=== PATIENT | female | born 1945 | race Caucasian/White ===

== ENCOUNTER 2017-08-22 05:25 | Inpatient (IN) | payer OTHER ==
[2017-08-22 05:45] VITALS: BMI 30.2
--- NOTE | 2017-08-22 06:17 | PDOC ---
Attending Attestation - HPI HPI: 08/22/17 06:26 The patient is a 72 year old female, with a significant past medical history of , DM, hypertension, ESRD on dialysis T/, who presents to the emergency department with, shortness of breath beginning approx. 2 pm yesterday. The patient reports the shortness of breath is made worse with exertion. The patient reports associated sensation of chest tightness but denies chest pain or palpitations. She denies recent fevers, chills, headache or dizziness. She denies recent nausea, vomit, diarrhea or constipation. Allergies: NKA Documentation prepared by Daniel Salazar, acting as medical records secretary for Michi Oliver DO. <Daniel Salazar - Last Filed: 08/22/17 06:26> - Resident Resident Name: Lan Saldana - ED Attending Attestation I have performed the following: I have examined & evaluated the patient, The case was reviewed & discussed with the resident, I agree w/resident's findings & plan, Exceptions are as noted - Physicial Exam PE: 08/22/17 20:02 physical exam physical exam*Physical Exam General Appearance: Yes: Appropriately Dressed. No: Apparent Distress, Intoxicated HEENT: positive: EOMI, MAHAD, Normal ENT Inspection, Normal Voice, TMs Normal, Pharynx Normal. negative: Pale Conjunctivae, Photophobia, Scleral Icterus (R), Scleral Icterus (L) Neck: positive: Trachea midline, Normal Thyroid, Supple. negative: Tender, Rigid, Carotid bruit, Stridor, Lymphadenopathy (R), Lymphadenopathy (L), Thyromegaly Respiratory/Chest: positive: decreased BS bilaterally, mild respiratory distress , +conversational dyspnea negative: Chest Tender Cardiovascular: positive: Regular Rhythm, Regular Rate, S1, S2. negative: Edema , JVD, Murmur, Bradycardia, Tachycardia Vascular Pulses: Dorsalis-Pedis (R): 2+, Doralis-Pedis (L): 2+ Gastrointestinal/Abdominal: positive: Normal Bowel Sounds, Flat, Soft. negative : Tender, Organomegaly, Pulsatile Mass, Increased Bowel Sounds, Decreased BS, Distended, Guarding, Rebound, Hernia, Hepatomegaly, Spleenomegaly Lymphatic: negative: Adenopathy, Tenderness Musculoskeletal: positive: AV fistula right arm, + bruit and thrill negative: CVA Tenderness, Decreased Range of Motion Extremity: positive: Normal Capillary Refill, Normal Inspection, Normal Range of Motion, Pelvis Stable. negative: Tender, Pedal Edema, Swelling, Erythema Integumentary: positive: Normal Color, Dry, Warm. negative: Cyanotic, Erythema , Jaundice, Rash Neurologic: positive: housekeeper cleaning cooking II-XII NML intact, Fully Oriented, Alert, Normal Mood/ Affect, Motor Strength 5/5. negative: EOM Palsy, Facial Droop, Sensory Deficit - Medical Decision Making 08/22/17 20:01 Pt admitted for further treatment and evaluation. <Michi Oliver - Last Filed: 08/22/17 20:04>
[2017-08-22] MEDS ORDERED: ALBUTEROL SO4 2.5/IPRATROPIUM 0.5 INH SOL 3 ML VIAL.NEB. NEB ONE ×2 (06:18→06:49)
[2017-08-22] MEDS ORDERED: NITROGLYCERIN 2% OINTMENT - 1GM PACKET TD ONE ×2 (06:18→06:48)
--- NOTE | 2017-08-22 06:24 | PDOC ---
History of Present Illness - General Chief Complaint: Shortness of Breath Stated Complaint: DIFFICULTY BREATHING Time Seen by Provider: 08/22/17 05:49 History Source: Patient Exam Limitations: Language Barrier - History of Present Illness Initial Comments: 08/22/17 06:19 Patient is a 72F with history of ESRD on TThSa dialysis, HTN, DM here today complaining of shortness of breath since 2pm yesterday. Patient states that she feels suffocated and has dyspnea on exertion. She denies chest pain, but describes a chest tightness. She denies nausea, vomiting, fevers, chills. She endorses a cough and decreased activity level. She denies leg swelling and edema. Denies smoking and alcohol use. EMS reports BP of 220 systolic in the field. Given nitro. BP now in 160s. Past History - Past Medical History Allergies/Adverse Reactions: Allergies Allergy/AdvReac Type Severity Reaction Status Date / Time No Known Allergies Allergy Verified 08/22/17 05:43 Home Medications: Ambulatory Orders Amlodipine Besylate [Norvasc -] 5 mg PO DAILY 08/22/17 Aspirin [ASA -] 81 mg PO DAILY 08/22/17 Carvedilol [Coreg -] 6.25 mg PO DAILY 08/22/17 COPD: No Dialysis: Yes (es, , sat) - Suicide/Smoking/Psychosocial Hx Smoking History: Never smoked Have you smoked in the past 12 months: No Information on smoking cessation initiated: No Hx Alcohol Use: No Drug/Substance Use Hx: No Review of Systems - Review of Systems Comments:: 08/22/17 06:21 GENERAL/CONSTITUTIONAL: No fever or chills. HEAD, EYES, EARS, NOSE AND THROAT: No change in vision. No sore throat. CARDIOVASCULAR: Positive for chest discomfort and shortness of breath. RESPIRATORY: Positive for cough. Negative for wheezing, or hemoptysis. GASTROINTESTINAL: No nausea, vomiting, diarrhea or constipation. GENITOURINARY: No dysuria, frequency, or change in urination. SKIN: No rash NEUROLOGIC: No headache, vertigo, loss of consciousness, or change in strength/ sensation. ALLERGIC/IMMUNOLOGIC: No hives or skin allergy. *Physical Exam - Vital Signs Last Vital Signs Temp Pulse Resp BP Pulse Ox 80 16 169/71 94 L 08/22/17 05:44 08/22/17 05:44 08/22/17 05:44 08/22/17 05:44 - Physical Exam Comments: 08/22/17 06:22 GENERAL: Awake, alert, and fully oriented, in no acute distress. HEAD: No signs of trauma, normocephalic, atraumatic EYES: PERRLA, EOMI, sclera anicteric, conjunctiva clear ENT: Auricles normal inspection, hearing grossly normal, nares patent, oropharynx clear without exudates. Moist mucosa NECK: Normal ROM, supple, no lymphadenopathy, JVD, or masses LUNGS: No distress, diminished breath sounds, dyspneic on walking in room, dyspneic with conversation. Not tachypneic while resting. HEART: Regular rate and rhythm, normal S1 and S2, 3/6 diastolic blowing murmur. ABDOMEN: Soft, nontender, normoactive bowel sounds. No guarding, no rebound. No masses EXTREMITIES: Normal inspection, Normal range of motion, no edema. No clubbing or cyanosis. NEUROLOGICAL: Cranial nerves II through XII grossly intact. Normal speech, no focal sensorimotor deficits SKIN: Warm, Dry, normal turgor, no rashes or lesions noted. ED Treatment Course - LABORATORY CBC & Chemistry Diagram: 08/22/17 06:15 08/22/17 06:15 - RADIOLOGY Radiology Studies Ordered: Category Date Time Status CHEST PA & LAT [RAD] Stat Radiology 08/22/17 06:17 Ordered Medical Decision Making - Medical Decision Making 08/22/17 06:24 72F with ESRD, DM, HTN here today with shortness of breath. Vital signs stable and normal after intervention in field. Differential diagnosis includes, but is not limited to: fluid overload, COPD exacerbation, pneumonia, CHF, arrhythmia, heart failure secondary to valve dysfunction. Will evaluate with ua, CBC, CMP, trop, ekg, cxr, bnp. Will treat with nitro paste and duoneb. EKG shows normal sinus rhythm with a rate of 76. Normal QRS and [place] intervals. QTc slightly prolonged to 479. No peaked t wave abnormalities. No signs of acute hyperkalemia. Flattened t-waves in multiple leads. No ST elevations/ depressions. No t wave inversions. 08/22/17 07:[address] Kaminski. *DC/Admit/Observation/Transfer Diagnosis at time of Disposition: Shortness of breath - Referrals - Patient Instructions - Post Discharge Activity
[2017-08-22 07:00] LABS: BASO % 0.6 % (0-2.0); EOS % 2.2 % (0-4.5); HEMATOCRIT 33.4 % (32.4-45.2); HEMOGLOBIN 10.5 GM/dL (10.7-15.3); LYMPH % 14.7 % (8-40); MCH 27.7 pg (25.7-33.7); MCHC 31.4 g/dl (32.0-36.0); MEAN CELL VOLUME 88.4 fl (80-96); MEAN PLT VOLUME 9.3 fl (7.5-11.1); MONO % 3.5 % (3.8-10.2); PLATELET COUNT 306 K/MM3 (134-434); RBC 3.77 M/mm3 (3.60-5.2); RDW 18.3 % (11.6-15.6)
[2017-08-22 07:04] LABS: URINE APPEARANCE CLEAR; URINE BILIRUBIN NEGATIVE (NEGATIVE); URINE BLOOD NEGATIVE (NEGATIVE); URINE COLOR STRAW; URINE GLUCOSE (UA) 2+ (NEGATIVE); URINE KETONE NEGATIVE (NEGATIVE); URINE LEUK ESTERASE TRACE (NEGATIVE); URINE NITRITE NEGATIVE (NEGATIVE); URINE UROBILINOGEN NEGATIVE mg/dL (0.2-1.0)
[2017-08-22 07:13] LABS: INR 0.98 (0.82-1.09); PROTHROMBIN TIME (PATIENT) 11.1 SEC (9.98-11.88)
[2017-08-22 07:18] LABS: URINE PROTEIN 3+ (NEGATIVE)
[2017-08-22 07:51] LABS: ALBUMIN 3.3 g/dl (3.4-5.0); ANION GAP 10 (8-16); BILIRUBIN,TOTAL 0.2 mg/dL (0.2-1.0); BLOOD UREA NITROGEN 62 mg/dL (7-18); CALCIUM 8.4 mg/dL (8.5-10.1); CHLORIDE 100 mmol/L (98-107); CO2 25 mmol/L (21-32); GLUCOSE,RANDOM 116 mg/dL (74-106); MAGNESIUM 2.8 mg/dL (1.8-2.4); POTASSIUM 5.7 mmol/L (3.5-5.1); SGOT/AST 10 U/L (15-37); SGPT/ALT 15 U/L (12-78); SODIUM 135 mmol/L (136-145); TOT PROT 6.5 g/dl (6.4-8.2)
[2017-08-22 07:57] LABS: ALK PHOS 123 U/L (45-117)
[2017-08-22 08:04] LABS: EPI CELLS FEW /HPF (FEW); URINE MUCUS RARE
[2017-08-22 08:26] LABS: CREATININE 8.1 mg/dL (0.55-1.02)
--- NOTE | 2017-08-22 09:15 | PDOC ---
*Physical Exam - Vital Signs Last Vital Signs Temp Pulse Resp BP Pulse Ox 98.2 F 74 18 149/72 97 08/22/17 08:41 08/22/17 08:41 08/22/17 08:41 08/22/17 08:41 08/22/17 08:41 ED Treatment Course - LABORATORY CBC & Chemistry Diagram: 08/22/17 06:15 08/22/17 06:15 - ADDITIONAL ORDERS Additional order review: Laboratory Results 08/22/17 08/22/17 08/22/17 06:15 06:15 06:15 PT with INR INR Sodium 135 L Potassium 5.7 H Chloride 100 Carbon Dioxide 25 Anion Gap 10 BUN 62 H Creatinine 8.1 H* Creat Clearance w eGFR 4.86 Random Glucose 116 H Calcium 8.4 L Magnesium 2.8 H Total Bilirubin 0.2 AST 10 L ALT 15 Alkaline Phosphatase 123 H Creatine Kinase 31 Troponin I < 0.02 B-Natriuretic Peptide 90667.64 H Total Protein 6.5 Albumin 3.3 L Urine Color Straw Urine Appearance Clear Urine pH 9.0 H Ur Specific [place] 1.011 Urine Protein 3+ H Urine Glucose (UA) 2+ H Urine Ketones Negative Urine Blood Negative Urine Nitrite Negative Urine Bilirubin Negative Urine Urobilinogen Negative Ur Leukocyte Esterase Trace Urine WBC (Auto) 8 Urine RBC (Auto) None Ur Epithelial Cells Few Urine Mucus Rare 08/22/17 06:15 PT with INR 11.10 INR 0.98 Sodium Potassium Chloride Carbon Dioxide Anion Gap BUN Creatinine Creat Clearance w eGFR Random Glucose Calcium Magnesium Total Bilirubin AST ALT Alkaline Phosphatase Creatine Kinase Troponin I B-Natriuretic Peptide Total Protein Albumin Urine Color Urine Appearance Urine pH Ur Specific [place] Urine Protein Urine Glucose (UA) Urine Ketones Urine Blood Urine Nitrite Urine Bilirubin Urine Urobilinogen Ur Leukocyte Esterase Urine WBC (Auto) Urine RBC (Auto) Ur Epithelial Cells Urine Mucus 08/22/17 06:15 RBC 3.77 MCV 88.4 MCHC 31.4 L RDW 18.3 H MPV 9.3 Neutrophils % 79.0 Lymphocytes % 14.7 Monocytes % 3.5 L Eosinophils % 2.2 Basophils % 0.6 - Medications Given in the ED: ED Medications Discontinued Medications Generic Name Dose Route Start Last Admin Trade Name Freq PRN Reason Stop Dose Admin Albuterol/Ipratropium 1 amp 08/22/17 06:18 08/22/17 06:53 Duoneb - NEB 08/22/17 06:19 1 amp ONCE ONE Administration Nitroglycerin 0.5 inch 08/22/17 06:18 08/22/17 06:53 Nitro-Bid 2% Paste - TD 08/22/17 06:19 0.5 inch ONCE ONE Administration *DC/Admit/Observation/Transfer Diagnosis at time of Disposition: Shortness of breath, Dialysis patient - Discharge Dispostion Admit: Yes - Referrals - Patient Instructions - Post Discharge Activity
--- NOTE | 2017-08-22 09:52 | HP ---
CHIEF COMPLAINT: "Couldn't breathe" PCP: Dr. Bettie Nicholas ([phone]) Plant Propagator: Dr. Clark HISTORY OF PRESENT ILLNESS: Patient is a 72 year old female with a PMHx of ESRD on HD (,,Sat), HTN, HLD, CAD s/p CABG (2004), Small bowel resection 2/2 jejunal bleeding, ventral hernia who presented today for increasing shortness of breath associated with chest tightness that started two days ago. Patient states having trouble breathing with or without physical activity and is unable to walk more than a few steps before getting short of breath, as well as difficulty sleeping. Patient also report substernal chest tightness that initially started two days ago as intermittent but is now constant, which prompted her to call the ambulance last night. Patient denies chest pain and reports it's only chest tightness. Patient also reports a productive cough with clear phlegm that has been chronic for the past year. Otherwise, patient denies fever, chills, rhinorrhea, muscle aches, nausea, vomiting, dizziness, diarrhea, chest pain, palpitations, leg swelling, dysuria, hematuria, hemoptysis acute vision changes. Patient denies any missed dialysis sessions Patient denies sick contacts. Patient does admit to having her flu shot this year. Patient denies any recent prolonged travel or recent immobilization. Patent denies any Malignancy, recent surgery, thrombophilia, hormone therapy ER course was notable for: (1) Duo-Neb treatment x1 (2) Nitroglycerin paste given (3) Recent Travel: Denies PAST MEDICAL HISTORY: ESRD on HD (,,Sat), HTN, HLD, CAD s/p CABG (2004), Small bowel resection 2/2 jejunal bleeding, ventral hernia PAST SURGICAL HISTORY: CABG (2004), Small bowel resection (2 years ago). Social History: Smoking: Denies Alcohol: Denies Drugs: Denies Family History: Unable to recall Allergies: No Known Allergies Allergy (Verified 08/22/17 05:43) HOME MEDICATIONS: Home Medications Medication Instructions Recorded Amlodipine Besylate [Norvasc -] 5 mg PO DAILY 08/22/17 Aspirin [ASA -] 81 mg PO DAILY 08/22/17 Carvedilol [Coreg -] 6.25 mg PO DAILY 08/22/17 Isoniazid 300 mg PO DAILY 08/22/17 REVIEW OF SYSTEMS CONSTITUTIONAL: Absent: fever, chills, diaphoresis, generalized weakness, malaise, loss of appetite, weight change HEENT: Absent: rhinorrhea, nasal congestion, throat pain, throat swelling, difficulty swallowing, mouth swelling, ear pain, eye pain, visual changes CARDIOVASCULAR: Absent: chest pain, syncope, palpitations, irregular heart rate, lightheadedness , peripheral edema RESPIRATORY: cough, shortness of breath, dyspnea with exertion Absent: orthopnea, wheezing, stridor, hemoptysis GASTROINTESTINAL: abdominal pain Absent: abdominal distension, nausea, vomiting, diarrhea, constipation, melena, hematochezia GENITOURINARY: Oliguria from ESRD Absent: dysuria, frequency, urgency, hesitancy, hematuria, flank pain, genital pain MUSCULOSKELETAL: Absent: myalgia, arthralgia, joint swelling, back pain, neck pain SKIN: Absent: rash, itching, pallor HEMATOLOGIC/IMMUNOLOGIC: Absent: easy bleeding, easy bruising, lymphadenopathy, frequent infections ENDOCRINE: Absent: unexplained weight gain, unexplained weight loss, heat intolerance, cold intolerance NEUROLOGIC: Absent: headache, focal weakness or paresthesias, dizziness, unsteady gait, seizure, mental status changes, bladder or bowel incontinence PSYCHIATRIC: Absent: anxiety, depression, suicidal or homicidal ideation, hallucinations. PHYSICAL EXAMINATION Vital Signs - 24 hr 08/22/17 08/22/17 05:44 08:41 Temperature 98.2 F Pulse Rate 80 Pulse Rate [ 74 Apical] Respiratory 16 18 Rate Blood Pressure 169/71 Blood Pressure 149/72 [Left Arm] O2 Sat by Pulse 94 L 97 Oximetry (%) GENERAL: Awake, alert, and fully oriented, in no acute distress. HEAD: Normal with no signs of trauma. EYES: Pupils equal, round and reactive to light, extraocular movements intact, sclera anicteric, conjunctiva clear. No lid lag. EARS, NOSE, THROAT: Oropharynx clear without exudates. Moist mucous membranes. NECK: Normal range of motion, supple without lymphadenopathy, JVD, or masses. LUNGS: Fine crackles appreciated in the right lung bases with no accessory muscle use. HEART: Vertical sternum scar. Regular rate and rhythm, normal S1 and S2 without murmur, rub or gallop. ABDOMEN: Soft, mild tenderness upon palpation of left lower quadrant with reducible ventral hernia, not distended, normoactive bowel sounds, no guarding, no rebound, no masses. No hepatomegaly or splenomegaly. MUSCULOSKELETAL: No CVA tenderness. UPPER EXTREMITIES: No peripheral edema. LOWER EXTREMITIES: 2+ pulses, warm, well-perfused. No calf tenderness. No peripheral edema. NEUROLOGICAL: Cranial nerves II-XII intact. Normal speech. Motor strength 5/5 bilaterally with sensory intact. 2+ reflex PSYCHIATRIC: Cooperative. Good eye contact. Appropriate mood and affect. SKIN: Warm, dry, normal turgor, no rashes or lesions noted, normal capillary refill. Laboratory Results - last 24 hr 08/22/17 08/22/17 08/22/17 06:15 06:15 06:15 WBC 7.0 RBC 3.77 Hgb 10.5 L Hct 33.4 MCV 88.4 MCH 27.7 MCHC 31.4 L RDW 18.3 H Plt Count 306 MPV 9.3 Neutrophils % 79.0 Lymphocytes % 14.7 Monocytes % 3.5 L Eosinophils % 2.2 Basophils % 0.6 PT with INR 11.10 INR 0.98 Sodium Potassium Chloride Carbon Dioxide Anion Gap BUN Creatinine Creat Clearance w eGFR Random Glucose Calcium Magnesium Total Bilirubin AST ALT Alkaline Phosphatase Creatine Kinase Troponin I B-Natriuretic Peptide Total Protein Albumin Urine Color Straw Urine Appearance Clear Urine pH 9.0 H Ur Specific [place] 1.011 Urine Protein 3+ H Urine Glucose (UA) 2+ H Urine Ketones Negative Urine Blood Negative Urine Nitrite Negative Urine Bilirubin Negative Urine Urobilinogen Negative Ur Leukocyte Esterase Trace Urine WBC (Auto) 8 Urine RBC (Auto) None Ur Epithelial Cells Few Urine Mucus Rare 08/22/17 08/22/17 06:15 06:15 WBC RBC Hgb Hct MCV MCH MCHC RDW Plt Count MPV Neutrophils % Lymphocytes % Monocytes % Eosinophils % Basophils % PT with INR INR Sodium 135 L Potassium 5.7 H Chloride 100 Carbon Dioxide 25 Anion Gap 10 BUN 62 H Creatinine 8.1 H* Creat Clearance w eGFR 4.86 Random Glucose 116 H Calcium 8.4 L Magnesium 2.8 H Total Bilirubin 0.2 AST 10 L ALT 15 Alkaline Phosphatase 123 H Creatine Kinase 31 Troponin I < 0.02 B-Natriuretic Peptide 42926.64 H Total Protein 6.5 Albumin 3.3 L Urine Color Urine Appearance Urine pH Ur Specific [place] Urine Protein Urine Glucose (UA) Urine Ketones Urine Blood Urine Nitrite Urine Bilirubin Urine Urobilinogen Ur Leukocyte Esterase Urine WBC (Auto) Urine RBC (Auto) Ur Epithelial Cells Urine Mucus IMAGES Chest X-Ray (08/22/17): No pneumonia, infiltrates, consolidation, CHF, Pleural effusion or pneumothorax ASSESSMENT/PLAN: Patient is a 72 year old female who presented for shortness of breath. Patient also scheduled for Hemodialysis today and is admitted for further monitoring and management. Dyspnea with Chest Tightness -Patient has history of CAD and will need to rule out cardiology etiology. Patient also has risk of PE, although low suspicion, and will need to rule out any pulmonology etiology vs. infectious etiology due to associated productive cough. However, patient is a dialysis patient and is likely in fluid overload and will need to remove fluids with dialysis. -PERC 2, HEART 5 -Patient afebrile, no leukocytosis or tachycardia -Troponin negative with EKG revealing no ST-T changes. Chest X-Ray negative for acute pathology -Flu swab ordered -Spoke to PCP who reports last ECHO revealed EF of 55% with normal stress test done July 2016. Will repeat ECHO -Maintain 02 saturation >95% with 02 -Will need to obtain dry weight ESRD on HD (T,TH,Sat) -Nephrology consult placed and spoke to trauma manager who will send patient to dialysis today with planned 3kg UF -Epogen ordered by trauma manager -Renally dose medications for hemodialysis -Strict Renal diet with salt restriction -Continue to monitor BMP HyperKalemia -Secondary to ESRD -For dialysis this afternoon -Continue to monitor BMP Hypermagnesemia -Secondary to ESRD -For dialysis today. Will continue to monitor Elevated BNP -Likely secondary to ESRD and old age. However, cannot rule out CHF. -BNP of 84,382 -Continuous Cardiac monitoring on Telemetry -ECHO ordered to rule out CHF Normocytic Anemia -Secondary to ESRD -Continue EPOGEN, as per nehrology -Patient takes Venofer injections weekly and Epogen 16,000 x3/week -Transfuse if hgb <7 -Continue to monitor CBC HTN -Patient found to have SBP 220 in the field with nitro given -Continue home medication Amlodipine 10mg daily and Coreg 6.25mg BID -Continue to monitor BP and Maintain BP <140/90 CAD s/p CABG -Continue ASA 81mg daily HLD -Records from PCP revealed last LDL January. Will order Lipid panel -Continue Atorvastatin 40mg HS F/E/N -On no Fluids -Hyperkalemia. Hyermagnesemia. For dialysis today -Renal Diet Prophylaxis -Moderate risk. Heparin 5000 units SQ Q8H for DVT -No GI required Disposition -Full code -ECHO pending. For dialysis today. Will need a minimum one night Visit type - Emergency Visit Emergency Visit: Yes ED Registration Date: 08/22/17 Care time: The patient presented to the Emergency Department on the above date and was hospitalized for further evaluation of their emergent condition. - New Patient This patient is new to me today: Yes Date on this admission: 08/22/17 - Critical Care Critical Care patient: No
--- NOTE | 2017-08-22 09:59 | CON.NEP ---
Consult Consult Specialty:: Nephrology Referred by:: ED Reason for Consultation:: ESRD on HD, Hyperkalemia - History of Present Illness Chief Complaint: SOB History of Present Illness: This is a 72 year old woman with PMhx of ESRD on HD (TTS x 4 years), Hypertension, CAD s/p CABG (13 years ago), DM, CVA presents with complaints of SOB that was acutely worse last night. Pt last had dialysis on Saturday w/o issues. + PADGETT but no orthopnea. No LE swelling. Denies dietary indiscretion. No fever, chills. No recent travel or immoblity. + Frequent BMs. No N/V. No [place], confusion or lethargy. Primary Web Content Director is Dr. Clark - History Source History Provided By: Patient, Family Member Limitations to Obtaining History: No Limitations - Past Medical History PRESS ROOM SUPERVISOR: Yes: CVA Cardio/Vascular: Yes: CAD, HTN Renal/: Yes: Renal Failure, Hemodialysis Endocrine: Yes: Diabetes Mellitus - Alcohol/Substance Use Hx Alcohol Use: No - Smoking History Smoking history: Never smoked Have you smoked in the past 12 months: No Home Medications - Allergies Allergies/Adverse Reactions: Allergies Allergy/AdvReac Type Severity Reaction Status Date / Time No Known Allergies Allergy Verified 08/22/17 05:43 - Home Medications Home Medications: Ambulatory Orders Amlodipine Besylate [Norvasc -] 5 mg PO DAILY 08/22/17 Aspirin [ASA -] 81 mg PO DAILY 08/22/17 Carvedilol [Coreg -] 6.25 mg PO DAILY 08/22/17 Isoniazid 300 mg PO DAILY 08/22/17 Family Disease History - Family Disease History Family History: Unremarkable Review of Systems - Review of Systems Constitutional: reports: Lethargy Eyes: reports: No Symptoms HENT: reports: No Symptoms Neck: reports: No Symptoms Cardiovascular: reports: Shortness of Breath. denies: Chest Pain, Palpitations Respiratory: reports: SOB, SOB on Exertion. denies: Cough, Hemoptysis, Orthopnea, PND, Wheezing Gastrointestinal: denies: Abdominal Pain, Constipation, Diarrhea, Nausea, Vomiting Genitourinary: reports: No Symptoms Musculoskeletal: reports: No Symptoms Neurological: reports: No Symptoms Nephrology Consult - Height Height: 4 ft 11 in - Weight Weight: 68.039 kg - BMI Body Mass Index (BMI): 30.2 - Lab Results CBC,BMP: CBC, BMP 08/22/17 06:15 08/22/17 06:15 Anion Gap: Anion Gap Anion Gap 10 (8-16) 08/22/17 06:15 - Imaging Chest X-ray: Report Reviewed - Physical Examination Vital Signs: Vital Signs Temperature 98.2 F 08/22/17 08:41 Pulse Rate 74 08/22/17 08:41 Respiratory Rate 18 08/22/17 08:41 Blood Pressure 149/72 08/22/17 08:41 O2 Sat by Pulse Oximetry (%) 97 08/22/17 08:41 Constitutional: Yes: No Distress, Calm Eyes: Yes: Conjunctiva Clear HENT: Yes: Atraumatic, Normocephalic Neck: Yes: Supple, Trachea Midline Cardiovascular: Yes: Regular Rate and Rhythm, S1, S2. No: Murmur, Rub Respiratory: Yes: Regular, Rhonchi, SOB. No: Cough, Diminished, On Nasal O2, Orthopnea Gastrointestinal: Yes: Normal Bowel Sounds, Soft Renal/: No: Bladder Distention, CVA Tenderness - Left, CVA Tenderness - Right Access for Hemodialysis: AV Fistula Extremities: No: Cold, Cool, Cyanosis Edema: No Assessment/Plan 72 year old woman with PMhx of ESRD on HD (TTS x 4 years), Hypertension, CAD s/ p CABG (13 years ago), DM, CVA presents with complaints of SOB that was acutely worse last night. #Acute SOB in ESRD with ? Mild volume overload CXR w/o overt congestion but pt does have crackles/rales on examination will plan for dialysis today with aggressive UF pt also have very elevated BNP if symptoms dont improve after fluid removal would consider examination of LE to r/o DVT although less likely #Hyperkalemia for dialysis today low K diet #ESRD on HD for dialysis today with planned 3kg UF Renal diet Fluid and salt restriction dose all meds for intermittent HD #Hypertension continue amlodipine and Coreg goal BP < 140/90 CHAS/ARB not being used, ? of hx of hyperkalemia in the past #CKD related Anemia will give KENDRA with HD no indication for transfusion #CAD with Hx of CABG consider cardiology consult consider ECHO #DM Type 2 management per primary Thank you Will follow Sagar Cordova DO
[2017-08-22] MEDS ORDERED: INSULIN SLIDING SCALE (NOVOLOG) 1 VIAL SQ SCH (11:00)
[2017-08-22] MEDS ORDERED: CARVEDILOL 6.25 MG TABLET (FP) PO ONE (11:00)
[2017-08-22 11:01] LABS: CHOLESTEROL 256 mg/dL (50-200); LDL CHOLESTEROL (ONLY SJRH) 152 mg/dL (5-100); TRIGLYCERIDES 245 mg/dL (35-160)
[2017-08-22 11:02] LABS: HDL CHOLESTEROL 52 mg/dL (40-60)
--- NOTE | 2017-08-22 11:47 | PN ---
Teaching Attending Note Name of Resident: Gretta Aguirre ATTENDING PHYSICIAN STATEMENT I saw and evaluated the patient. I reviewed the resident's note and discussed the case with the resident. I agree with the resident's findings and plan as documented. SUBJECTIVE: This is a 72 year old woman with a history of ESRD on HD, HTN, CAD, CABG, hyperlipidemia, CVA who presents to the ED complaining of SOB, chest tightness, cough and fatigue. Her last HD was 08/20. She denies fever, chills, leg edema. She was given nitroglycerin by EMS for SBP 220. OBJECTIVE: Vital Signs Period Temp Pulse Resp BP Sys/Guajardo Pulse Ox Last 24 Hr 98.2 F 74-80 16-18 149-169/71-72 94-97 HEART: S1S2, RRR, (+) 2/6 SM LUNGS: Bibasilar rales ABDOMEN: Soft, non-tender, non-distended, normal BS EXTREMITIES: No edema Laboratory Tests 08/22/17 08/22/17 08/22/17 06:15 06:15 06:15 WBC 7.0 RBC 3.77 Hgb 10.5 L Hct 33.4 MCV 88.4 MCH 27.7 MCHC 31.4 L RDW 18.3 H Plt Count 306 MPV 9.3 Neutrophils % 79.0 Lymphocytes % 14.7 Monocytes % 3.5 L Eosinophils % 2.2 Basophils % 0.6 PT with INR 11.10 INR 0.98 Sodium Potassium Chloride Carbon Dioxide Anion Gap BUN Creatinine Creat Clearance w eGFR Random Glucose Calcium Magnesium Total Bilirubin AST ALT Alkaline Phosphatase Creatine Kinase Troponin I B-Natriuretic Peptide Total Protein Albumin Triglycerides Cholesterol Total LDL Cholesterol HDL Cholesterol Urine Color Straw Urine Appearance Clear Urine pH 9.0 H Ur Specific [place] 1.011 Urine Protein 3+ H Urine Glucose (UA) 2+ H Urine Ketones Negative Urine Blood Negative Urine Nitrite Negative Urine Bilirubin Negative Urine Urobilinogen Negative Ur Leukocyte Esterase Trace Urine WBC (Auto) 8 Urine RBC (Auto) None Ur Epithelial Cells Few Urine Mucus Rare 08/22/17 08/22/17 06:15 06:15 WBC RBC Hgb Hct MCV MCH MCHC RDW Plt Count MPV Neutrophils % Lymphocytes % Monocytes % Eosinophils % Basophils % PT with INR INR Sodium 135 L Potassium 5.7 H Chloride 100 Carbon Dioxide 25 Anion Gap 10 BUN 62 H Creatinine 8.1 H* Creat Clearance w eGFR 4.86 Random Glucose 116 H Calcium 8.4 L Magnesium 2.8 H Total Bilirubin 0.2 AST 10 L ALT 15 Alkaline Phosphatase 123 H Creatine Kinase 31 Troponin I < 0.02 B-Natriuretic Peptide 29812.64 H Total Protein 6.5 Albumin 3.3 L Triglycerides 245 H Cholesterol 256 H Total LDL Cholesterol 152 H HDL Cholesterol 52 Urine Color Urine Appearance Urine pH Ur Specific [place] Urine Protein Urine Glucose (UA) Urine Ketones Urine Blood Urine Nitrite Urine Bilirubin Urine Urobilinogen Ur Leukocyte Esterase Urine WBC (Auto) Urine RBC (Auto) Ur Epithelial Cells Urine Mucus Home Medications Medication Instructions Recorded Amlodipine Besylate [Norvasc -] 5 mg PO DAILY 08/22/17 Aspirin [ASA -] 81 mg PO DAILY 08/22/17 Atorvastatin Ca [Lipitor] 40 mg PO HS 08/22/17 Carvedilol [Coreg -] 6.25 mg PO DAILY 08/22/17 Isoniazid 300 mg PO DAILY 08/22/17 ASSESSMENT AND PLAN: This is a 72 year old woman with a history of ESRD on HD, HTN, CAD, CABG, hyperlipidemia, CVA who presented to the ED with SOB, chest tightness, cough and fatigue. She was found to have BUN 62, creatinine 8.1, potassium 5.7, BNP 77292. 1. Dyspnea and chest tightness, likely secondary to fluid overload - Nephrology consult for HD - Monitor on telemetry - Serial troponins - Echocardiogram 2. Hyperkalemia secondary to ESRD - Needs HD 3. ESRD - Nephrology consult for HD 4. HTN - Continue Coreg, Norvasc 5. CAD, history of CABG - Continue aspirin, Norvasc, Lipitor 6. Hyperlipidemia - Continue Lipitor 7. Anemia secondary to ESRD
[2017-08-22] MEDS: amLODIPine BESYLATE 5 MG TABLET (FP) PO SCH (11:57)
[2017-08-22] MEDS: ASPIRIN 81 MG CHEWABLE TABLETS PO SCH (11:57)
--- NOTE | 2017-08-22 12:42 | EKG ---
Test Reason : Blood Pressure : / mmHG Vent. Rate : 075 BPM Atrial Rate : 075 BPM P-R Int : 196 ms QRS Dur : 092 ms QT Int : 428 ms P-R-T Axes : 026 020 064 degrees QTc Int : 477 ms NORMAL SINUS RHYTHM NONSPECIFIC ST AND T WAVE ABNORMALITY ABNORMAL ECG NO PREVIOUS ECGS AVAILABLE Confirmed by GABBY KAT, RAZA ([id number]) on 08/22/2017 12:42:35 PM Referred By: Confirmed By:RAZA PIERRE MD
[2017-08-22] MEDS: HEPARIN NA (PORCINE) 5,000 UNITS/ML 1ML VIAL SQ SCH ×2 (14:52→22:53)
[2017-08-22] MEDS ORDERED: EPOETIN ALFA 2,000 UNIT/1 ML VIAL IVPUSH ONE (15:45)
[2017-08-22] MEDS ORDERED: ACETAMINOPHEN 325 MG TABLET (FP) PO PRN (22:17)
[2017-08-22] MEDS ORDERED: MELATONIN 5 MG TABLETS PO PRN (22:18)
[2017-08-23] MEDS: HEPARIN NA (PORCINE) 5,000 UNITS/ML 1ML VIAL SQ SCH ×2 (06:16→14:44)
[2017-08-23 06:45] LABS: HEMATOCRIT 33.7 % (32.4-45.2); HEMOGLOBIN 10.5 GM/dL (10.7-15.3); MCH 27.4 pg (25.7-33.7); MEAN CELL VOLUME 88.4 fl (80-96); MEAN PLT VOLUME 9.4 fl (7.5-11.1); PLATELET COUNT 278 K/MM3 (134-434); RBC 3.81 M/mm3 (3.60-5.2); RDW 18.6 % (11.6-15.6)
--- NOTE | 2017-08-23 06:46 | PN ---
Physical Exam: SUBJECTIVE: Patient seen and examined OBJECTIVE: Vital Signs Period Temp Pulse Resp BP Sys/Guajardo Pulse Ox Last 24 Hr 97.9 F-98.9 F 74-88 18-18 132-173/64-92 95-98 GENERAL: The patient is awake, alert, and fully oriented, in no acute distress. HEAD: Normal with no signs of trauma. EYES: PERRL, extraocular movements intact, sclera anicteric, conjunctiva clear. No ptosis. ENT: Ears normal, nares patent, oropharynx clear without exudates, moist mucous membranes. NECK: Trachea midline, full range of motion, supple. LUNGS: Breath sounds equal, clear to auscultation bilaterally, no wheezes, no crackles, no accessory muscle use. HEART: Regular rate and rhythm, S1, S2 without murmur, rub or gallop. ABDOMEN: Soft, nontender, nondistended, normoactive bowel sounds, no guarding, no rebound, no hepatosplenomegaly, no masses. EXTREMITIES: 2+ pulses, warm, well-perfused, no edema. NEUROLOGICAL: Cranial nerves II through XII grossly intact. Normal speech, gait not observed. PSYCH: Normal mood, normal affect. SKIN: Warm, dry, normal turgor, no rashes or lesions noted Laboratory Results - last 24 hr 08/22/17 08/22/17 08/22/17 06:15 06:15 06:15 WBC 7.0 RBC 3.77 Hgb 10.5 L Hct 33.4 MCV 88.4 MCH 27.7 MCHC 31.4 L RDW 18.3 H Plt Count 306 MPV 9.3 Neutrophils % 79.0 Lymphocytes % 14.7 Monocytes % 3.5 L Eosinophils % 2.2 Basophils % 0.6 PT with INR 11.10 INR 0.98 Sodium Potassium Chloride Carbon Dioxide Anion Gap BUN Creatinine Creat Clearance w eGFR Random Glucose Hemoglobin A1c % Calcium Magnesium Total Bilirubin AST ALT Alkaline Phosphatase Creatine Kinase Troponin I B-Natriuretic Peptide Total Protein Albumin Triglycerides Cholesterol Total LDL Cholesterol HDL Cholesterol Urine Color Straw Urine Appearance Clear Urine pH 9.0 H Ur Specific [place] 1.011 Urine Protein 3+ H Urine Glucose (UA) 2+ H Urine Ketones Negative Urine Blood Negative Urine Nitrite Negative Urine Bilirubin Negative Urine Urobilinogen Negative Ur Leukocyte Esterase Trace Urine WBC (Auto) 8 Urine RBC (Auto) None Ur Epithelial Cells Few Urine Mucus Rare 08/22/17 08/22/17 08/22/17 06:15 06:15 12:21 WBC RBC Hgb Hct MCV MCH MCHC RDW Plt Count MPV Neutrophils % Lymphocytes % Monocytes % Eosinophils % Basophils % PT with INR INR Sodium 135 L Potassium 5.7 H Chloride 100 Carbon Dioxide 25 Anion Gap 10 BUN 62 H Creatinine 8.1 H* Creat Clearance w eGFR 4.86 Random Glucose 116 H Hemoglobin A1c % 5.5 Calcium 8.4 L Magnesium 2.8 H Total Bilirubin 0.2 AST 10 L ALT 15 Alkaline Phosphatase 123 H Creatine Kinase 31 Troponin I < 0.02 B-Natriuretic Peptide 64457.64 H Total Protein 6.5 Albumin 3.3 L Triglycerides 245 H Cholesterol 256 H Total LDL Cholesterol 152 H HDL Cholesterol 52 Urine Color Urine Appearance Urine pH Ur Specific [place] Urine Protein Urine Glucose (UA) Urine Ketones Urine Blood Urine Nitrite Urine Bilirubin Urine Urobilinogen Ur Leukocyte Esterase Urine WBC (Auto) Urine RBC (Auto) Ur Epithelial Cells Urine Mucus 08/22/17 12:21 WBC RBC Hgb Hct MCV MCH MCHC RDW Plt Count MPV Neutrophils % Lymphocytes % Monocytes % Eosinophils % Basophils % PT with INR INR Sodium Potassium Chloride Carbon Dioxide Anion Gap BUN Creatinine Creat Clearance w eGFR Random Glucose Hemoglobin A1c % Calcium Magnesium Total Bilirubin AST ALT Alkaline Phosphatase Creatine Kinase Troponin I < 0.02 B-Natriuretic Peptide Total Protein Albumin Triglycerides Cholesterol Total LDL Cholesterol HDL Cholesterol Urine Color Urine Appearance Urine pH Ur Specific [place] Urine Protein Urine Glucose (UA) Urine Ketones Urine Blood Urine Nitrite Urine Bilirubin Urine Urobilinogen Ur Leukocyte Esterase Urine WBC (Auto) Urine RBC (Auto) Ur Epithelial Cells Urine Mucus Active Medications Acetaminophen (Tylenol -) 650 mg PO Q6H PRN PRN Reason: PAIN Last Admin: 08/22/17 22:54 Dose: 650 mg Amlodipine Besylate (Norvasc -) 5 mg PO DAILY [facility] Last Admin: 08/22/17 11:57 Dose: 5 mg Aspirin (Asa -) 81 mg PO DAILY [facility] Last Admin: 08/22/17 11:57 Dose: 81 mg Carvedilol (Coreg -) 6.25 mg PO DAILY [facility] Heparin Sodium (Porcine) (Heparin -) 5,000 unit SQ TID [facility] Last Admin: 08/23/17 06:16 Dose: 5,000 unit Melatonin (Melatonin) 5 mg PO HS PRN PRN Reason: INSOMNIA Last Admin: 08/22/17 22:53 Dose: 5 mg ASSESSMENT/PLAN:
[2017-08-23 07:01] LABS: ANION GAP 12 (8-16); BLOOD UREA NITROGEN 36 mg/dL (7-18); CALCIUM 8.9 mg/dL (8.5-10.1); CHLORIDE 99 mmol/L (98-107); CO2 31 mmol/L (21-32); CREATININE 5.4 mg/dL (0.55-1.02); GLUCOSE,RANDOM 113 mg/dL (74-106); MAGNESIUM 2.5 mg/dL (1.8-2.4); PHOSPHOROUS 6.1 mg/dL (2.5-4.9); POTASSIUM 4.7 mmol/L (3.5-5.1); SODIUM 142 mmol/L (136-145)
[2017-08-23] MEDS ORDERED: CARVEDILOL 6.25 MG TABLET (FP) PO SCH (10:00)
[2017-08-23] MEDS: amLODIPine BESYLATE 5 MG TABLET (FP) PO SCH (10:05)
[2017-08-23] MEDS: ASPIRIN 81 MG CHEWABLE TABLETS PO SCH (10:05)
--- NOTE | 2017-08-23 12:26 | PN ---
Progress Note (short form) - Note Progress Note: Renal Follow up for ESRD on HD Pt seen and examined at the bedside awake and alert s/p dialysis yesterday with 3kg UF spoke with pt with office professional and she reports that her sob is resolved and back at baseline Vital Signs Temperature 98.9 F 08/23/17 06:00 Pulse Rate 77 08/23/17 11:42 Respiratory Rate 18 08/23/17 11:42 Blood Pressure 144/73 08/23/17 11:42 O2 Sat by Pulse Oximetry (%) 98 08/23/17 09:00 Intake & Output 08/20/17 08/21/17 08/22/17 08/23/17 23:59 23:59 23:59 23:59 Intake Total 610 120 Balance 610 120 Weight 68.039 kg 72.847 kg NAD RRR CTA, no rales soft NT/ND Abd no LE edema CBC, BMP 08/23/17 06:15 08/23/17 06:15 Current Medications Acetaminophen (Tylenol -) 650 mg PO Q6H PRN PRN Reason: PAIN Last Admin: 08/22/17 22:54 Dose: 650 mg Amlodipine Besylate (Norvasc -) 5 mg PO DAILY [facility] Last Admin: 08/23/17 10:05 Dose: 5 mg Aspirin (Asa -) 81 mg PO DAILY [facility] Last Admin: 08/23/17 10:05 Dose: 81 mg Carvedilol (Coreg -) 6.25 mg PO DAILY [facility] Heparin Sodium (Porcine) (Heparin -) 5,000 unit SQ TID [facility] Last Admin: 08/23/17 06:16 Dose: 5,000 unit Melatonin (Melatonin) 5 mg PO HS PRN PRN Reason: INSOMNIA Last Admin: 08/22/17 22:53 Dose: 5 mg 72 year old woman with PMhx of ESRD on HD (TTS x 4 years), Hypertension, CAD s/ p CABG (13 years ago), DM, CVA presents with complaints of SOB that was acutely worse last night. #Acute SOB in ESRD with ? Mild volume overload pt clinically improved s/p UF with dialysis continue fluid and salt restriction for additional dialysis and UF tomorrow #ESRD on HD s/p dialysis yesterday, tolerated it well next treatment planned for tomorrow #Hypertension BP near goal continue present meds #CKD related Anemia continue KENDRA with Hd #CAD with Hx of CABG ECHO showed normal LV Function, increased RV pressure Sagar Cordova DO
--- NOTE | 2017-08-23 12:33 | CONSULT ---
- Consultation REQUESTING PROVIDER: Alem Lopez MD CONSULT REQUEST: We have been asked to surgically evaluate this patient for management of an abdominal wall hernia. PCP:Adam Mcdowell HISTORY OF PRESENT ILLNESS: BAO who is a 72 y/o female admitted oer 24 hours ago w/difficulty breathing for which a w/u is in progress; patient was found to have an abdominal wall hernia and consultation was requested; patient has known about the hernia for some time after surgery for a ? small bowel resection 2-3 years ago not done here; it does ? not interfere w/her ADL; she provides no other hx. She is eating and moving her bowels. PMHx: ESRD;hypertension;hyperlipidemia; ? TB PSHx: ex lap and small bowel resection Home Medications Medication Instructions Recorded Amlodipine Besylate [Norvasc -] 5 mg PO DAILY 08/22/17 Aspirin [ASA -] 81 mg PO DAILY 08/22/17 Atorvastatin Ca [Lipitor] 40 mg PO HS 08/22/17 Carvedilol [Coreg -] 6.25 mg PO DAILY 08/22/17 Isoniazid 300 mg PO DAILY 08/22/17 Allergies Allergy/AdvReac Type Severity Reaction Status Date / Time No Known Allergies Allergy Verified 08/22/17 05:43 PHYSICAL EXAM: GENERAL: Awake, alert, and fully oriented, in no acute distress. HEAD: Normal with no signs of trauma. EYES: sclera anicteric, conjunctiva clear. NECK: Normal ROM, supple without lymphadenopathy, JVD, or masses. ABDOMEN: Soft, nontender, not distended, normoactive bowel sounds, no guarding, no rebound, no masses. No organomegaly. Reducible lower midline incisional hernia; healed lower midline surgical scar; no groin hernias. MUSCULOSKELETAL: Normal ROM at all joints. No bony deformities or tenderness. No CVA tenderness. HD access RUE UPPER EXTREMITIES: 2+ pulses, warm, well-perfused. No cyanosis. Cap refill <2 seconds. No peripheral edema. LOWER EXTREMITIES: 2+ pulses, warm, well-perfused. No calf tenderness. No peripheral edema. NEUROLOGICAL: Normal speech, gait not observed. PSYCH: Cooperative. Good eye contact. Appropriate mood and affect. SKIN: Warm, dry, normal turgor, no rashes or lesions noted. Vital Signs Temperature 98.9 F 08/23/17 06:00 Pulse Rate 77 08/23/17 11:42 Respiratory Rate 18 08/23/17 11:42 Blood Pressure 144/73 08/23/17 11:42 O2 Sat by Pulse Oximetry (%) 98 08/23/17 09:00 Lab Results WBC 11.0 K/mm3 (4.0-10.0) H D 08/23/17 06:15 RBC 3.81 M/mm3 (3.60-5.2) 08/23/17 06:15 Hgb 10.5 GM/dL (10.7-15.3) L 08/23/17 06:15 Hct 33.7 % (32.4-45.2) 08/23/17 06:15 MCV 88.4 fl (80-96) 08/23/17 06:15 MCHC 31.0 g/dl (32.0-36.0) L 08/23/17 06:15 RDW 18.6 % (11.6-15.6) H 08/23/17 06:15 Plt Count 278 K/MM3 (134-434) 08/23/17 06:15 Sodium 142 mmol/L (136-145) 08/23/17 06:15 Potassium 4.7 mmol/L (3.5-5.1) 08/23/17 06:15 Chloride 99 mmol/L (98-107) 08/23/17 06:15 Carbon Dioxide 31 mmol/L (21-32) D 08/23/17 06:15 Anion Gap 12 (8-16) 08/23/17 06:15 BUN 36 mg/dL (7-18) H D 08/23/17 06:15 Creatinine 5.4 mg/dL (0.55-1.02) H 08/23/17 06:15 Random Glucose 113 mg/dL (74-106) H 08/23/17 06:15 Calcium 8.9 mg/dL (8.5-10.1) 08/23/17 06:15 INR 0.98 (0.82-1.09) 08/22/17 06:15 IMP: incisional hernia w/o evidence of incarceration and/or strangulation PLAN: Advise repair once acute issues that brought the patient to the ER are resolved; d/w patient in [place] the s's and s's of incarceration and/or strangulation and what to do should that occur if she has to f/u as an outpatient or if surgery is not done. Leeroy Nelson MD FACS Visit type - Case Type Case Type: ED Admission - Emergency Emergency Visit: Yes ED Registration Date: 08/22/17 Care time: The patient presented to the Emergency Department on the above date and was hospitalized for further evaluation of their emergent condition. - New patient This patient is new to me today: Yes Date on this admission: 08/23/17 - Critical Care Critical Care patient: No
--- NOTE | 2017-08-23 13:26 | PN ---
Teaching Attending Note Name of Resident: Stefany Juarez ATTENDING PHYSICIAN STATEMENT I saw and evaluated the patient. I reviewed the resident's note and discussed the case with the resident. I agree with the resident's findings and plan as documented. SUBJECTIVE: No fever ro chills , has no SOB , no CP . her sx resolved after Hd . she has pain x 2-3 months at site of abd wall hernia OBJECTIVE: NAd Cv: RRR, 2/6 Sm at LUSB. Lung s: CTAB ext : no edema Abd: soft, mid line infrumbilical hernia which is reversible but slightly tender with no skin changes . NL BS . ASSESSMENT AND PLAN: 72 y/o lady with h/o ESRD on HD (T,TH,Sat), HTN, HLD, CAD s/p CABG, Small bowel resection 2/2 jejunal bleeding, ventral hernia and other medical problems who presented with SOB 1- SOB due to volume overload. resolved completely after HD . nO CP or any EKG changes to suggest ACS . Echo reviewed. EKG reviewed. trop NL. - cont HD per routine schedule 2- HLP : LDL 152 . she denies being on lipitor . will start 40 f lpitor for goal LDL < 70 3- h/o CAD, HTn: cont home meds 4- Abd wall hernia : appreciate dr. Nelson help. No incarceration or strangulation. f/u in office. d/w him dipo : home . witnessed walking by strategy intern and doing well
--- NOTE | 2017-08-23 18:00 | DS ---
Physical Exam: SUBJECTIVE: Patient seen and examined. Reports breathing improved after HD yesterday. Slept well overnight. No SOB or chest pain. OBJECTIVE: Vital Signs Period Temp Pulse Resp BP Sys/Guajardo Pulse Ox Last 24 Hr 98.2 F-98.9 F 76-88 17-18 119-173/64-83 95-98 PHYSICAL EXAM GENERAL: lying comfortaby in bed, nad, aaox3 EYES: sclera anicteric, conjunctiva clear. ENT: oropharynx clear without exudates, moist mucous membranes. NECK: supple, no cervical LAD LUNGS: CTAB HEART: rrr, normal s1/s2, 2/6 EDWIN at LUSB ABDOMEN: obese, soft, mildline infraumbilical reducible hernia, midlly tender ttp, normoactive BS UPPER EXTREMITIES: R AVF 2+ radial pulses, wwp, no edema LOWER EXTREMITIES: 2+ DP pulses, wwp, no edema Laboratory Results - last 24 hr 08/23/17 08/23/17 06:15 06:15 WBC 11.0 H D RBC 3.81 Hgb 10.5 L Hct 33.7 MCV 88.4 MCH 27.4 MCHC 31.0 L RDW 18.6 H Plt Count 278 MPV 9.4 Sodium 142 Potassium 4.7 Chloride 99 Carbon Dioxide 31 D Anion Gap 12 BUN 36 H D Creatinine 5.4 H Random Glucose 113 H Calcium 8.9 Phosphorus 6.1 H Magnesium 2.5 H IMAGING: CXR 08/22/2017: s/p CT surgery. No e/o widening of superior mediastinum. Calcified aortic arch, uncoiled thoracic aorta. The heart is borderline enlarged. No e/o CHF, pleural effuions, or pneumothorax. No e/o pulmonary consolidations. IMPRESSION: No e/o PNA, CHF, pleural effusion or pneumothorax. HOSPITAL COURSE: Date of Admission:08/22/17 Date of Discharge: 08/23/17 Pre-Admission Course: 72yo woman with PMH of ESRD on HD (TTS x 4yrs), HTN, HLD, CAD s/p CABG (13years ago), DM, and other medical problems who p/w with complaint of increasing SOB that was acutely worse last night. Last dialysis session was Saturday w/o issues. The patient reports intermittent chest tightness that initially started two days ago. Patient reports a productive cough with clear phlegm that has been chronic for the past year. Otherwise, patient denies fever, chills, rhinorrhea, muscle aches, nausea, vomiting, dizziness, diarrhea, chest pain, palpitations, leg swelling, dysuria, hematuria, hemoptysis acute vision changes. Patient denies any missed dialysis sessions Patient denies sick contacts. Patient does admit to having her flu shot this year. Patient denies any recent prolonged travel or recent immobilization. Patent denies any Malignancy, recent surgery, thrombophilia, hormone therapy ER course was notable for: (1) Duo-Neb treatment x1 (2) Nitroglycerin paste given Subsequent Hospital Course: Patient received HD with aggressive ultrafiltration on day of admission with complete resolution of her symptoms. She was observed overnight and denied further chest pain or SOB. EKG was reviewed and there were no changes suggestive of ACS. Troponin was negative. Patient was found to have elevated LDL (152), and was started on Lipitor 40mg HS with the goal of LDL<70 Physical was notable for ventral hernia. She reports mild tenderness at the site for the past 2-3 months. General surgery was consulted, and patient was instructed to follow-up regarding surgical options as an out-patient, which she was in agreement with. Consults: Renal - Dr. Cordova General Surgery - Dr. Nelson Minutes to complete discharge: 45 Discharge Summary Reason For Visit: SOB Current Active Problems Dialysis patient (Chronic) Condition: Improved - Instructions Diet, Activity, Other Instructions: You were admitted to the hospital for shortness of breath. You received dialysis yesterday. Your next dialysis session will be tomorrow, Saturday. Recommendations: -Please resume your regular daily activities. Do not drink more than 1.5L of fluids per day. Avoid foods high in salt and potassium. Medications: Please resume your regular daily medications with the following addition: (1) Take Lipitor 40mg daily for your high cholesterol Follow-ups: -Make an appointment to see your primary care physician within 1-2 weeks for post-hospital evaluation. -Make an appointment to see Dr. Nelson, a surgeon, to discuss management of your hernia. Please return to the Emergency Department if you have worsening shortness of breath, chest pain/tightness/discomfort, severe abdominal pain, fever, chills, or any new or concerning symptoms. [place]: John s[facility]os en [facility] por falta de aire. Prasad recibiste dilisis. Mason pr xima sesin de dilisis ser maana, sbado 08/24/17. Recomendaciones: -por favor reanudar cooper actividades diarias regulares. No chloé ms de 1.5 l de l quidos por da. Evite los alimentos altos en barak y potasio. Medicamentos: Por favor, epesar cooper medicamentos diarios regulares con la siguiente adicin: (1) tome el 40mg de Lipitor diariamente para mason alto colesterol Citas de segimiento: -Nikki elena radha para arron a mason mdico de primario dentro de 1-2 semanas para la evaluacin post-hospitalaria. -Nikki elena radha para arron al doctor Omar, un cirujano, para discutir la reparacion de mason hernia. Por favor regrese al Departamento de emergencias si usted tiene empeoramiento de la respiracin, dolor en el pecho/opresin/malestar, dolor abdominal thiago, fiebre, escalofros, o cualquier sntoma nuevo o concerniente. Referrals: Leeroy Nelson MD [Staff Physician] - Bettie Nicholas MD [Non Staff, Medical] - Disposition: HOME - Home Medications Comprehensive Discharge Medication List: Ambulatory Orders Amlodipine Besylate [Norvasc -] 5 mg PO DAILY 08/22/17 Aspirin [ASA -] 81 mg PO DAILY 08/22/17 Carvedilol [Coreg -] 6.25 mg PO BID 08/22/17 Atorvastatin Ca [Lipitor] 40 mg PO HS #30 tablet 08/23/17 This patient is new to me today: Yes Date on this admission: 08/23/17 Emergency Visit: No Critical Care patient: No - Discharge Referral Referred to [facility] No
[2017-08-23 18:23] VITALS: BP 152/72; PULSE 93; TEMP 98.8
[2017-08-23] MEDS ORDERED: ATORVASTATIN CA 40 MG TABLET (FP) PO SCH (22:00)
[2017-08-24] MEDS ORDERED: CARVEDILOL 6.25 MG TABLET (FP) PO SCH (10:00)
[2017-08-24 14:11] LABS: HBSAG SCREEN Negative (Negative); HEP A AB, IGM Negative (Negative); HEP B CORE AB, TOT Negative (Negative)
== END 2017-08-23 18:47 | disposition home or self-care (01) | DRG 460 ==
LOC: JER 05:25 → JERBED 09:15 → OBSVTOIN 11:45 → J4W 19:00
PROVIDERS: ADMIT Internal Medicine; ATTEND Internal Medicine
PROC: 5A1D70Z Performance of Urinary Filtration, Intermittent, Less than 6 Hours Per Day (ICD-10-PCS; principal; 2017-08-22)
DX: I12.0 Hypertensive chronic kidney disease with stage 5 chronic kidney disease or end stage renal disease (principal); N18.6 End stage renal disease; E11.22 Type 2 diabetes mellitus with diabetic chronic kidney disease; E78.5 Hyperlipidemia, unspecified; E87.5 Hyperkalemia; E83.41 Hypermagnesemia; I25.10 Atherosclerotic heart disease of native coronary artery without angina pectoris; D63.8 Anemia in other chronic diseases classified elsewhere; E87.70 Fluid overload, unspecified; K43.2 Incisional hernia without obstruction or gangrene; Z95.1 Presence of aortocoronary bypass graft; Z95.5 Presence of coronary angioplasty implant and graft; Z86.73 Personal history of transient ischemic attack (TIA), and cerebral infarction without residual deficits; Z99.2 Dependence on renal dialysis
CPT/HCPCS: 36415; 71046-TC; 80048; 80053; 80061; 81003; 81015; 82550; 83036; 83721; 83735; 83880; 84100; 84484; 85025; 85027; 85610; 86704; 86706; 86708; 86803; 87340; 87804; 93005; 93010; 93306-TC; 97116-GP; 97161-GP; 99285-25; G0378; J0885; J1644